=== PATIENT | female | born 1980 | race African-American/Black ===

== ENCOUNTER → 2020-10-27 | Outpatient (CLI) | payer OTHER ==
[~2020-10-27] MED LIST: ALDACTAZIDE 251 TAB PO; ALDACTONE 25MG25 M1 PO; ASPIRIN 32325 MG/TAB PO; BACTRIM DS 8001 TAB PO; CEPHALEXIN; CEPHALEXIN500 M1 PO; CORTISPORIN OTI10 ML OT; DIFLUCAN150 MG PO; LORTAB 5/500 501 TAB PO; METRONIDAZOLE500 MG PO; NEXIUM 20MG20 MG PO; NO HOME MEDICATIONS; PRENATAL1 TA2 PO; VITAMIN C500 MG PO
== END ==
LOC: COL.VAS 12:30
DX: R07.9 Chest pain, unspecified (principal)

== ENCOUNTER 2023-07-19 17:36 | Emergency (ER) | payer SELFPAY ==
[~2023-07-19] VITALS: Ht 162.6 cm; Wt 66.4 kg
[2023-07-19 17:41] VITALS: TEMP 98
[2023-07-19] MEDS ORDERED: NORVASC 10MG10 MG PO (19:07)
[2023-07-19] MEDS ORDERED: CLEOCIN HCL300 MG PO (19:07)
[2023-07-19 19:34] VITALS: BP 195/132; PULSE 85
== END 2023-07-19 19:34 | disposition home or self-care (01) ==
LOC: COL.ER 17:36
DX: K04.7 Periapical abscess without sinus (principal); I10 Essential (primary) hypertension; F17.210 Nicotine dependence, cigarettes, uncomplicated; Z79.899 Other long term (current) drug therapy; Z88.0 Allergy status to penicillin